=== PATIENT | female | born 1945 | race African-American/Black ===

== ENCOUNTER 2016-12-05 11:27 | Inpatient (IN) | payer MEDICARE, OTHER ==
--- NOTE | ~2016-12-05 | HP ---
History And Physical [place] [id number] [facility] [place]. [address] NAME: CINDY KEYS : 43 STATUS : ADM IN PAT#: [id number] AGE: 71 ADM/REG DATE : 12/05/16 MR#: [id number] REPORT SERV DATE: 12/05/16 DICTATED BY: Bora DASH DATE: 12/05/16 REPORT STATUS : Draft TRANSCRIBED BY: MODL DATE: 12/05/16 DATE OF ADMISSION: 12/05/2016 HISTORY OF PRESENT ILLNESS: A 71-year-old female, living independently was found down by her family this morning resulting in activation of EMS and the patient was brought to [facility] Emergency Room for further evaluation. Family states the last time they have known her to be normal was yesterday morning. They also report that the patient is actively abusing narcotics. ED evaluation shows an acute kidney injury with elevated CPK consistent with rhabdomyolysis. Her potassium was 6.0 and has been treated with insulin plus D50, calcium chloride, and sodium bicarbonate. She had a complaint of hip pain. She has had x-ray images that showed no evidence of fracture. Also her lung x-ray was clear. The patient was initially hypotensive with a blood pressure 60/40, but after fluid bolus, the patient's blood pressure is now in the 90 to 100 range over 40. ER has given Narcan 0.4 IV x2 with some transient benefit. We are currently starting a Narcan drip at 0.6 an hour as well as a bicarb drip at 150 mL an hour. Fitzpatrick catheter has been placed and Dr. Thomas Borden was in the process of placing central access in case a hemodynamic support is needed. Her bed location will be intermediate care bed 7. PAST MEDICAL HISTORY: Unobtainable secondary to her current mental status. Family is not available for interview, but they were here earlier and did go over her medications that were brought that do suggest underlying issues of osteoarthritis, hypertension, type 2 diabetes, and COPD. SOCIAL HISTORY: She does live independently. She does have good family support. The above- mentioned narcotic abuse ongoing. REVIEW OF SYSTEMS: Limited as mentioned above. FAMILY HISTORY: Unobtainable secondary to the current mental status. PHYSICAL EXAMINATION: GENERAL: It was a somnolent female who will arouse briefly and immediately go back to sleep. VITAL SIGNS: Last blood pressure was 140/48 with a heart rate of 68. She was afebrile respiratory rate was 19. HEENT: Pupils equal, round, and reactive to light. Extraocular muscles are intact. Oropharynx is clear. NECK: Without JVD or bruit. LUNGS: Clear anteriorly. Normal respiratory effort. HEART: Regular. Soft 1/6 murmur, left lower sternal border. ABDOMEN: Obese, soft. Positive bowel sounds without organomegaly or mass. EXTREMITIES: No edema. Pulses are +2. SKIN: Without rash or ecchymotic area. JOINTS: Without synovitis, effusion, or deformity. NEURO: Cranial nerves grossly intact. Motor exam is nonfocal. Sensation unremarkable. History And Physical [address] [address] NAME: CINDY KEYS : 43 STATUS : ADM IN [facility]#: [id number] AGE: 71 ADM/REG DATE : 12/05/16 MR#: [id number] REPORT SERV DATE: 12/05/16 DICTATED BY: Bora DASH DATE: 12/05/16 REPORT STATUS : Draft TRANSCRIBED BY: RAMAN DATE: 12/05/16 Gait was not assessed. GENITOURINARY: Significant for Fitzpatrick catheter. RECTAL: Deferred. LABORATORY DATA: Available data; sodium 135, potassium 6.0, chloride 109, bicarb 17, BUN 59, creatinine 3.30. CPK is 7128, troponin 0.08. Lactate is 1. White cell count is 11.4, hemoglobin is 11.7, hematocrit 35.9, platelets 299. Urine drug screen is positive for opiates. Chest x-ray was negative. Right hip x-ray negative. IMPRESSION: A 71-year-old female patient with acute kidney injury, rhabdomyolysis, hypotension, and hyperkalemia. PLAN: Admit by Dr. Dash to intermediate care. Continue Narcan drip. Continue bicarb drip. Consult to Nephrology. Renal ultrasound to evaluate structural status of her kidneys. Continue Fitzpatrick catheter. Full code status. Routine vitals. O2 to keep sats greater than 90%. N.p.o. for now. We will repeat a BMP at 1600, which is approximately 2- 1/2 hours. The a.m. labs will include CBC, CMP, and repeat CPK. Continue D5W with 3 amps of bicarb at 150 an hour. Level 2 subcu sliding scale insulin to augment diabetic control. Because of her being found down and lethargic, will complete evaluation with a noncontrast CT of the brain to rule out structural disease. Further recommendations for ongoing treatment pending review of followup laboratory, review of renal ultrasound, input from Nephrology, and observation of her response to initial therapy. FLH/MODL Bora Dash M.D. / [id number] CC: Koby Toussaint M.D.
--- NOTE | ~2016-12-05 | CN ---
Consultation Report [facility] [address] [place]. [address] NAME: CINDY RUBIO : 43 STATUS : ADM IN PAT#: [id number] AGE: 71 ADM/REG DATE : 12/05/16 MR#: [id number] REPORT SERV DATE: 12/05/16 DICTATED BY: KARMEN CAMPOVERDE DATE: 12/05/16 REPORT STATUS : Draft TRANSCRIBED BY: MODBritni DATE: 12/05/16 NEPHROLOGY CONSULTATION DATE OF CONSULTATION: 12/05/2016 REASON FOR CONSULT: Acute kidney injury, hyperkalemia, and rhabdomyolysis. HISTORY OF PRESENT ILLNESS: Ms. Rubio is a 71-year-old female who has a history of hypertension, NIDDM, hyperlipidemia, and emphysema. She had a creatinine of 1.1 in December 2015. She is chronically maintained on metformin, NSAIDs, and ARB without recent changes in her medication. She chronically takes Percocet for pain. She was brought in today by friends when she was found down at home when she was being visited by friends to bring her to her regular PCP doctor's appointment. She had last been seen around 3:30 p.m. yesterday and these events occurred this morning around 8:30 a.m. She was lethargic and brought in to [facility] ER where she was placed on a Narcan infusion. CT of the head showed no acute neuro changes, chest x-ray showed no acute process, and x-ray of the hip showed no fracture. Her lactate was 1.0, potassium 6, bicarb 17, anion gap 9, BUN 59, creatinine 3.3, CPK 7128 and myoglobin 4736. Tylenol, aspirin, and alcohol levels were normal. Fitzpatrick catheter was placed and she was put on a bicarb drip. She is now nonoliguric and apparently somewhat more awake. PAST MEDICAL HISTORY: 1. Hypertension, on ARB. 2. NIDDM, on metformin. 3. Hyperlipidemia, on statin. 4. History of right hip and bilateral knee replacements, on chronic NSAID. 5. COPD. MEDICATIONS AT HOME: Amlodipine 5 mg a day, vitamin C, vitamin D, Klonopin, Breo Ellipta, Neurontin 400 mg t.i.d., metformin 500 mg b.i.d., Remeron 45 mg at h.s., Prilosec, oxybutynin, Percocet 10 three times a day, Zocor 20 mg at h.s., Clinoril 150 mg b.i.d., Zanaflex 4 mg b.i.d., and Diovan 160 mg daily. FAMILY HISTORY: No ESRD. SOCIAL HISTORY: Unobtainable in the patient's current condition. REVIEW OF SYSTEMS: Unobtainable in the patient's current condition. PHYSICAL EXAMINATION: VITAL SIGNS: Temperature 98, pulse 91, respirations 18, blood pressure 137/63, and 95% saturation on room air. Consultation Report [address] [place]. [address] NAME: CINDY RUBIO : 43 STATUS : ADM IN [facility]#: [id number] AGE: 71 ADM/REG DATE : 12/05/16 MR#: [id number] REPORT SERV DATE: 12/05/16 DICTATED BY: KARMEN CAMPOVERDE DATE: 12/05/16 REPORT STATUS : Draft TRANSCRIBED BY: RAMAN DATE: 12/05/16 GENERAL: Sedated female, on Narcan drip. She is accompanied by two friends. She does wake up and tried to answer some questions, but is not fully appropriate at this time. HEENT: Sclerae without icterus. Conjunctivae not injected. Oropharynx is clear. Mucous membranes are dry. No JVD. LUNGS: She has bilateral rhonchi without dyspnea or tachypnea on room air. Regular rate and rhythm. No rub. ABDOMEN: Soft, nontender, and nondistended. Bowel sounds present throughout. No rebound, guarding, or peritoneal signs. EXTREMITIES: Without edema. SKIN: Without rash. She has dark clear urine in the Fitzpatrick catheter. LABORATORY DATA: Sodium 135, potassium 6, bicarb 17, BUN 59, creatinine 3.3, calcium 10.3, and magnesium 2.3. GFR 15. CPK 7128. Lactate 1.0. White count 11.4 without eosinophilia, hemoglobin 11.7, and platelets 299,000. ASSESSMENT AND PLAN: Ms. Rubio has nonoliguric acute kidney injury in the setting of rhabdomyolysis, profound hypotension on presentation, non-anion gap metabolic acidosis, hyperkalemia, encephalopathy, and anemia. More than likely her acute kidney injury is multifactorial related to a component of intravascular volume depletion, acute tubular necrosis from renal hypoperfusion from low blood pressure, rhabdomyolysis. Hold NSAIDs, metformin, and ARB. Continue IV fluids plus bicarb. She has excellent urine output in the ER, and hopefully will recover renal function without the need for dialysis. We will follow closely with you. Continue to treat potassium medically. Recheck was 5.5. Thank you for consult. NC/MODL Karmen Campoverde M.D. / [id number] CC: Bora Dash M.D.
--- NOTE | ~2016-12-05 | CN ---
Consultation Report [facility] [address] [place]. [address] NAME: CINDY RUBIO : 43 STATUS : ADM IN PAT#: [id number] AGE: 71 ADM/REG DATE : 12/05/16 MR#: [id number] REPORT SERV DATE: 12/12/16 DICTATED BY: KRISS TENA DATE: 12/12/16 REPORT STATUS : Draft TRANSCRIBED BY: MODL DATE: 12/12/16 GI CONSULTATION DATE OF CONSULTATION: 12/11/2016 REASON FOR CONSULTATION: Rectal bleeding. HISTORY OF PRESENT ILLNESS: Ms. Rubio is a 71-year-old black female who has been followed by Dr. Jones for her chronic constipation, who initially presented to [facility] with right hip pain after a fall and acute kidney injury. She has suspected rhabdomyolysis, and during her hospitalization, reported one episode of bright red blood per rectum on Thursday. It had been six days since her last bowel movement and she reports that it has streaks with wiping. She also had a bowel movement yesterday, but no overt bleeding, although it was found to be FOB positive brown stool. Her last EGD and colonoscopy were performed by Dr. Jones in 06/2014. I have brought the records of this to be placed in her chart. He found grade 1 internal hemorrhoids, but otherwise normal colonoscopy with good views. EGD was essentially without any source of bleeding. Denies any abdominal pain. No rectal pain, and no further change in her bowel movements. PAST MEDICAL HISTORY: Reflux, constipation, chronic, diabetes, arthritis, hypertension, dyslipidemia, anxiety, and breast cancer. SURGICAL HISTORY: Thyroid surgery, right hip replacement, carpal tunnel surgery, cataract surgery, and knee surgery. SOCIAL HISTORY: No smoking, alcohol, or drug use. FAMILY HISTORY: Noncontributory. MEDICATIONS: Reviewed. ALLERGIES: REVIEWED. PHYSICAL EXAMINATION: GENERAL: Patient is afebrile. VITAL SIGNS: Stable. GENERAL: The patient is awake, alert, and oriented x3. Well developed, well nourished, in no acute distress. Uses a walker to ambulate. She is ambulating in her room. HEENT: Atraumatic, normocephalic. Anicteric. Mucous membranes moist. CARDIAC: S1, S2. CHEST: Clear. ABDOMEN: Soft, nontender, and nondistended. Bowel sounds normoactive. RECTAL: The patient refuses digital rectal exam at this time. Consultation Report [place] [address] [facility] [place] [address] NAME: CINDY RUBIO : 43 STATUS : ADM IN PAT#: [id number] AGE: 71 ADM/REG DATE : 12/05/16 MR#: [id number] REPORT SERV DATE: 12/12/16 DICTATED BY: KRISS TENA DATE: 12/12/16 REPORT STATUS : Draft TRANSCRIBED BY: RAMAN DATE: 12/12/16 LABORATORY DATA: Showed WBC 8; hemoglobin 9.5, was 10.2; hematocrit 28.8, was 30; MCV 89.2; and platelets 290. Sodium 148, potassium 4.8, chloride 119, bicarb 19, BUN 17, and creatinine 0.89. Glucose 107. Liver enzymes normal. Troponin 0.08. IMPRESSION AND PLAN: Rectal bleeding, most likely from hemorrhoids or straining as the patient has not had a bowel movement in almost a week since then and this has since resolved. With regard to overt bleeding, she had recent esophagogastroduodenoscopy and colonoscopy performed in late 2013 with good views and no worrisome lesions. She has no abdominal pain or rectal pain along with this. No apparent need for endoscopic evaluation at this time. The patient also refuses digital rectal exam today. I recommend the patient be followed up with Dr. Jones in two weeks after her discharge. Can use Anusol suppositories if resumed. Please call with any questions. FRANCISCO/RAMAN Kriss Tena MD / [id number] CC: MD TANIA Taylor R. HENRY
--- NOTE | ~2016-12-05 | DS ---
Discharge Summary [place] [address] [place]. [address] NAME: CINDY KEYS : 43 STATUS : DIS IN PAT#: [id number] AGE: 71 ADM/REG DATE : 12/05/16 MR#: [id number] REPORT SERV DATE: 12/13/16 DICTATED BY: EVAN MADDOX DATE: 12/12/16 REPORT STATUS : Draft TRANSCRIBED BY: RAMAN DATE: 12/12/16 ADMISSION DATE: 12/05/2016 DISCHARGE DATE: 12/12/2016 PROCEDURES DONE: 1. 12/05/2016, CT of the head: No acute intracranial abnormality identified at this time, mild cortical volume loss, and findings compatible with minimal chronic deep white matter ischemic changes. 2. 12/05/2016, chest x-ray: New right central line with its tip in the junction of the SVC and right atrium. No pneumothorax present. 3. 12/05/2016, x-ray, right hip: Intact right hip prosthesis. No bones are osteopenic. No pelvis or left hip fractures are identified. 4. 12/05/2016, ultrasound, renal: Normal renal ultrasound. Specular fat reflection versus tiny nonobstructing right renal calculi. CONSULT: Dr. Adames for Renal. REASON FOR ADMISSION: Change in mental status. HISTORY OF HOSPITAL STAY: A 71-year-old black female with past medical history of hypertension, diabetes type 2, COPD, osteoarthritis, presenting with a change in mental status. The patient was brought by EMS from home. The patient was obtunded at the time of presentation. Initial workup in the ER showed a CPK of 7128 with an elevated potassium of 6.0. The patient was admitted in IMCU and started on a Narcan drip. There was a question of change in mental status secondary to narcotics. The patient's CPK levels eventually trended down to 441 one day prior to discharge. In addition, the patient also had a GI bleed. The patient had two stools of occult blood that was positive. GI was consulted and patient had a colonoscopy approximately 2 years ago. The patient had history of internal hemorrhoids, grade 1. H and H have been stable on the day of discharge. GI felt the patient could be safely discharged within 1 to 2 weeks' time. Follow up with Dr. Jones. DISPOSITION: The patient is feeling fine, no complaints. ACTIVITIES: As tolerated. DIET: Diabetic. MEDICATIONS UPON DISCHARGE: 1. Amlodipine 5 mg p.o. at bedtime. 2. Bentyl 10 mg p.o. t.i.d. 3. Remeron 45 mg p.o. at bedtime. 4. Prilosec 20 mg p.o. daily. 5. Diovan 160 mg p.o. daily. 6. Klonopin 0.5 mg p.o. at bedtime. 7. Neurontin 400 mg p.o. t.i.d. 8. Vitamin B12, 1000 mcg p.o. daily. Discharge Summary [address] [address] NAME: CINDY KEYS : 43 STATUS : DIS IN PAT#: [id number] AGE: 71 ADM/REG DATE : 12/05/16 MR#: [id number] REPORT SERV DATE: 12/13/16 DICTATED BY: EVAN MADDOX DATE: 12/12/16 REPORT STATUS : Draft TRANSCRIBED BY: RAMAN DATE: 12/12/16 9. Vitamin B complex one tab p.o. daily. 10.Vitamin C, 500 mg p.o. daily. 11.Vitamin D, 1000 units p.o. daily. 12.Percocet 10/325 one tab p.o. t.i.d. 13.Metformin 500 mg p.o. b.i.d. 14.Zanaflex 4 mg p.o. b.i.d. 15.Sulindac 150 mg p.o. daily. 16.Zocor 20 mg p.o. at bedtime. 17.Breo Ellipta one puff inhaled p.r.n. 18.Oxybutynin 5 mg p.o. t.i.d. 19.ProAir two puffs p.r.n. unknown frequency. 20.Flonase one spray each nostril daily p.r.n. DIAGNOSES UPON DISCHARGE: 1. Change in mental status secondary to questionable narcotics. 2. Rhabdomyolysis. 3. Hyperkalemia. 4. Hypotension secondary to change in mental status. 5. Urinary tract infection secondary to Escherichia coli, resolved. 6. Acute kidney injury secondary to rhabdomyolysis versus narcotics, resolved. FBJ/MODL Evan Maddox MD / [id number] CC: MD Fareed Taylor M.D.
--- NOTE | ~2016-12-05 | EHP ---
ER History and Physical [place] [id number] [facility] [place]. [address] NAME: CINDY KEYS : 43 STATUS : ADM IN PAT#: [id number] AGE: 71 ADM/REG DATE : 12/05/16 MR#: [id number] REPORT SERV DATE: 12/05/16 DICTATED BY: BECKY TAYLOR DATE: 12/05/16 REPORT STATUS : Draft TRANSCRIBED BY: RAMAN DATE: 12/05/16 CHIEF COMPLAINT: Low fall, weakness, and dizziness. HISTORY OF PRESENT ILLNESS: The patient is a 71-year-old, female, was seen by the midlevel provider for weakness, falls, right hip pain, been ongoing for two days. I was asked to help intervene with the patient once laboratory work started returning, and the patient became more lethargic. The patient was given Narcan. The patient is on heavy doses of narcotics at home, was unsure what all she has been taking. Narcan improved her mental status. Labs indicated the patient has acute renal failure with rhabdomyolysis and hyperkalemia. I became involved with the patient and began correcting her metabolic acidosis and help of improving her hyperkalemia, also ordered several labs in regard to rhabdomyolysis. The patient became more hypotensive here, suspecting mainly volume depletion, more IV fluids were started. Discussed this case with Dr. Dash the admitting physician, and he has requested that PICC line or central line be placed. Shortly after, the patient became more hypotensive requiring more IV fluids. The right subclavian central line was placed by myself. See the paper chart for details of the procedure. The patient tolerated this procedure well. Her hypotension seems to improve with adequate dosing of Narcan as well as volume repletion, and now, the patient is making urine. The patient is to go to the [facility]. As stated, the patient was discussed with admitting physician, and I have spent at least 45 minutes in direct care of this patient outside of any procedures with stabilization, review of lab work, and discussion with admitting physician. Please document at least 75 minutes of critical care time for both myself and the midlevel provider, Guerline Quiñones, nurse practitioner and stabilization of this patient. Total critical care time of 75 minutes. ANTHONY Becky Taylor DO / [id number] CC: Bora Dash M.D.
--- NOTE | ~2016-12-05 | HP ---
History And Physical [address] [place]. [address] NAME: CINDY KEYS : 43 STATUS : ADM IN [facility]#: [id number] AGE: 71 ADM/REG DATE : 12/05/16 MR#: [id number] REPORT SERV DATE: 12/09/16 DICTATED BY: GLEN BLEVINS DATE: 12/09/16 REPORT STATUS : Draft TRANSCRIBED BY: MODBritni DATE: 12/09/16 DATE OF ADMISSION: 12/05/2016 CHIEF COMPLAINT: Right hip pain. HISTORY OF PRESENT ILLNESS: This is a 71-year-old female, brought to the hospital with acute kidney injury, rhabdomyolysis, and confusion according to the chart, and I was consulted late Thursday for right hip pain after a fall. Review of her x-rays yesterday, which I did, the films as well as the report, revealed no evidence of acute fracture injury around the previous total hip that was done by another surgeon. ALLERGIES: NONE. MEDICATIONS: See chart. PAST MEDICAL HISTORY: Arthritis, gastritis, history of breast cancer with surgery for that in 1999. PAST SURGICAL HISTORY: Trigger thumb surgery in 1996, carpal tunnel on the right hand in 2005, right total hip replacement by Dr. Anguiano in 2009, bilateral total knees in 2013, cataract surgery in 2007 and 2010. SOCIAL HISTORY: No cigarettes, alcohol, or illicit drug use. FAMILY HISTORY: No anesthetic complications. REVIEW OF SYSTEMS: As above with acute renal injury and hypercreatinemia as noted. PHYSICAL EXAMINATION: GENERAL: She is now alert and oriented x3, in no apparent distress. HEENT: Atraumatic, normocephalic. NECK: Supple. CHEST: Symmetric, nontender. LUNGS: Per Medicine evaluation. CV: Regular. ABDOMEN: Soft. No mass. EXTREMITIES: Both upper extremities and left lower extremity without acute trauma. Right lower extremity, skin is intact. Compartment supple. She is minimally tender over the trochanter. Good range of motion of the hip. 2+ pulses. NEURO: Sensorimotor without deficit. X-RAY: I have reviewed the films and report at length in the right hip and see no evidence of acute fracture or other injury. ASSESSMENT: Right hip deep contusion, questionable radicular pain, questionable occult History And Physical [address] [place]. [address] NAME: CINDY KEYS : 43 STATUS : ADM IN PAT#: [id number] AGE: 71 ADM/REG DATE : 12/05/16 MR#: [id number] REPORT SERV DATE: 12/09/16 DICTATED BY: GLEN BLEVINS DATE: 12/09/16 REPORT STATUS : Draft TRANSCRIBED BY: MODL DATE: 12/09/16 lesion. PLAN: At this point, she is feeling somewhat better than she did right after the fall, and I have recommended we attempt immobilization and observation. If her pain persists or gets worse, we may consider further imaging. WTB/MODL Debbie Blevins M.D. / [id number] CC: Koby Schmitz M.D.
[2016-12-05 11:00] LABS: BASOPHILS 0.1 %; BASOPHILS ABSOLUTE 0.01 10/3/uL (0.0-0.16); EOSINOPHILS 0.6 %; EOSINOPHILS ABSOLUTE 0.07 10/3/uL (0.0-0.53); HEMATOCRIT 35.9 % (36.0-48.0); HEMOGLOBIN 11.7 g/dL (12.0-16.0); IMMATURE GRANULOCYTES 0.4 %; IMMATURE GRANULOCYTES ABSOLUTE 0.05 10/3/uL (0.0-0.11); LYMPHOCYTES 10.5 %; MEAN CORPUS HGB CONC 32.6 g/dL (32.0-36.0); MEAN CORPUSCULAR HEMOGLOB 30.3 pg (26.0-34.0); MONOCYTES 5.4 %; MONOCYTES ABSOLUTE 0.62 10/3/uL (0.21-1.20); NEUTROPHILS ABSOLUTE 9.45 10/3/uL (2.02-8.40); PLATELET COUNT 299 10/3/uL (150-400); RBC DISTRIBUTION WIDTH 14.6 % (12.0-16.0); RED CELL COUNT 3.86 10/6/uL (4.0-5.6)
[2016-12-05 11:01] LABS: MANUAL DIFF NO %; WHITE BLOOD CELLS 11.4 10/3/uL (4.5-10.5)
[2016-12-05 11:38] LABS: CHLORIDE, SERUM 109 MMOL/L (96-112); CPK 7128 U/L (0-200); SODIUM, SERUM 135 MMOL/L (135-148)
[2016-12-05 11:50] LABS: BUN (BLOOD UREA NITROGEN) 59 MG/DL (6-23); CALCIUM, SERUM 10.3 MG/DL (8.5-10.4); CHEST PAIN PROFILE TAT 0 Hrs 55 Mins; CO2 (CARBON DIOXIDE) 17 MMOL/L (24-34); GFR AFRICAN AMERICAN 15 ML/MIN (>=60); GFR NON AFRICAN AMERICAN 13 ML/MIN (>=60); GLUCOSE, SERUM 136 MG/DL (60-99); TROPONIN I 0.08 NG/ML (<0.05)
[2016-12-05 11:56] LABS: AMPHETAMINES (NOT ORD) NEG (NEG); BENZODIAZEPINES (NOT ORD) NEG (NEG); CANNABINOIDS (THC) NEG (NEG); COCAINE (NOT ORDERED) NEG (NEG); PHENCYCLIDINE(PCP) NEG (NEG)
[2016-12-05 11:57] LABS: BARBITURATES (NOT ORDERED NEG (NEG); OPIATES POS (NEG); TRICYCLICS NEG (NEG)
[2016-12-05] MEDS ORDERED: CYANO1000T PO (12:53)
[2016-12-05] MEDS ORDERED: SUPER B COMP PO (12:54)
[2016-12-05] MEDS ORDERED: PERCOCET 10/3251 TAB PO (12:54)
[2016-12-05] MEDS ORDERED: VITAMIN D1000 UNI1 PO (12:54)
[2016-12-05] MEDS ORDERED: VITC500 PO (12:54)
[2016-12-05] MEDS ORDERED: PRILO PO (12:55)
[2016-12-05] MEDS ORDERED: NEUR400 PO (12:55)
[2016-12-05] MEDS ORDERED: REMERON45 MG PO (12:55)
[2016-12-05] MEDS ORDERED: BENTYL10 PO (12:55)
[2016-12-05] MEDS ORDERED: NORV5 PO (12:55)
[2016-12-05] MEDS ORDERED: GLUCPH PO (12:55)
[2016-12-05] MEDS ORDERED: ZANAFLEX 4 MG TA4 MG PO (12:56)
[2016-12-05] MEDS ORDERED: ZOCOR20 PO (12:56)
[2016-12-05] MEDS ORDERED: KLONO5 PO (12:56)
[2016-12-05] MEDS ORDERED: DIOV160 PO (12:56)
[2016-12-05] MEDS ORDERED: CLIN150 PO (12:56)
[2016-12-05] MEDS ORDERED: DITRO5 PO (12:57)
[2016-12-05] MEDS ORDERED: PROAIR HFA INH (12:57)
[2016-12-05] MEDS ORDERED: FLONASE NAS (12:57)
[2016-12-05] MEDS ORDERED: BREO ELLIPTA INH (12:57)
[2016-12-05 14:32] LABS: ACETAMINOPHEN LEVEL (TYLENOL) < 2.0 MCG/ML (10.0-20.0); ALCOHOL < 10 MG/DL (0); SALICYLATE < 1.7 MG/DL (-)
[2016-12-05 16:42] LABS: CHLORIDE, SERUM 112 MMOL/L (96-112)
[2016-12-05 16:44] LABS: BUN (BLOOD UREA NITROGEN) 49 MG/DL (6-23); CALCIUM, SERUM 9.2 MG/DL (8.5-10.4); CO2 (CARBON DIOXIDE) 23 MMOL/L (24-34); CREATININE 2.11 MG/DL (0.55-1.02); GFR AFRICAN AMERICAN 26 ML/MIN (>=60); GFR NON AFRICAN AMERICAN 23 ML/MIN (>=60); GLUCOSE, SERUM 167 MG/DL (60-99); POTASSIUM, SERUM 4.5 MMOL/L (3.5-5.3); SODIUM, SERUM 150 MMOL/L (135-148)
[2016-12-05 20:21] LABS: ASCORBIC ACID (UR NOT ORDER) 20 (NEG); BILIRUBIN, URINE NEGATIVE (NEG); KETONE, URINE 20 MG/DL (NEG); LEUKOCYTE ESTERASE(NOT OR LARGE (NEG); WBC (NOT ORDERED) (RFLEX) 15 (0-5)
[2016-12-06 04:31] LABS: BASOPHILS 0.2 %; BASOPHILS ABSOLUTE 0.02 10/3/uL (0.0-0.16); EOSINOPHILS 0.4 %; EOSINOPHILS ABSOLUTE 0.03 10/3/uL (0.0-0.53); HEMOGLOBIN 10.2 g/dL (12.0-16.0); IMMATURE GRANULOCYTES 0.2 %; IMMATURE GRANULOCYTES ABSOLUTE 0.02 10/3/uL (0.0-0.11); LYMPHOCYTES 20.7 %; LYMPHOCYTES ABSOLUTE 1.77 10/3/uL (0.67-4.30); MEAN CORPUSCULAR HEMOGLOB 30.4 pg (26.0-34.0); MEAN PLATELET VOLUME 8.7 fL (9.2-13.0); MONOCYTES 5.6 %; MONOCYTES ABSOLUTE 0.48 10/3/uL (0.21-1.20); NEUTROPHILS 72.9 %; NEUTROPHILS ABSOLUTE 6.24 10/3/uL (2.02-8.40); PLATELET COUNT 239 10/3/uL (150-400); RBC DISTRIBUTION WIDTH 14.1 % (12.0-16.0); RED CELL COUNT 3.36 10/6/uL (4.0-5.6); WHITE BLOOD CELLS 8.6 10/3/uL (4.5-10.5)
[2016-12-06 04:34] LABS: MANUAL DIFF NO %; MEAN CORPUSCULAR VOLUME 89.3 fL (80-100)
[2016-12-06 05:01] LABS: A/G RATIO 0.8 (0.7-1.9); ALBUMIN 2.7 G/DL (3.5-5.0); ALKALINE PHOSPHATASE 110 U/L (45-117); BUN (BLOOD UREA NITROGEN) 26 MG/DL (6-23); CHLORIDE, SERUM 109 MMOL/L (96-112); CK-MB 9.1 NG/ML; CKMB INDEX (NOT ORD) 0.2; CO2 (CARBON DIOXIDE) 30 MMOL/L (24-34); CPK 4848 U/L (0-200); CREATININE 1.04 MG/DL (0.55-1.02); GFR AFRICAN AMERICAN 62 ML/MIN (>=60); GFR NON AFRICAN AMERICAN 54 ML/MIN (>=60); GLOBULIN 3.4 G/DL (2.5-4.1); GLUCOSE, SERUM 152 MG/DL (60-99); PHOSPHORUS, SERUM 2.5 MG/DL (2.5-4.5); POTASSIUM, SERUM 3.8 MMOL/L (3.5-5.3); SGOT(AST) 119 U/L (5-40); SGPT(ALT) 50 U/L (5-65); SODIUM, SERUM 150 MMOL/L (135-148); TOTAL BILIRUBIN 0.8 MG/DL (0-1.2); TOTAL PROTEIN 6.1 G/DL (6.0-8.5)
[2016-12-07 04:43] LABS: BASOPHILS 0.3 %; BASOPHILS ABSOLUTE 0.03 10/3/uL (0.0-0.16); EOSINOPHILS 1.2 %; EOSINOPHILS ABSOLUTE 0.11 10/3/uL (0.0-0.53); IMMATURE GRANULOCYTES 0.8 %; IMMATURE GRANULOCYTES ABSOLUTE 0.07 10/3/uL (0.0-0.11); LYMPHOCYTES 20.6 %; LYMPHOCYTES ABSOLUTE 1.82 10/3/uL (0.67-4.30); MEAN CORPUS HGB CONC 33.1 g/dL (32.0-36.0); MEAN CORPUSCULAR HEMOGLOB 29.9 pg (26.0-34.0); MEAN CORPUSCULAR VOLUME 90.2 fL (80-100); MEAN PLATELET VOLUME 8.8 fL (9.2-13.0); MONOCYTES 7.4 %; MONOCYTES ABSOLUTE 0.65 10/3/uL (0.21-1.20); NEUTROPHILS 69.7 %; NEUTROPHILS ABSOLUTE 6.15 10/3/uL (2.02-8.40); PLATELET COUNT 254 10/3/uL (150-400); RBC DISTRIBUTION WIDTH 14.3 % (12.0-16.0); RED CELL COUNT 3.68 10/6/uL (4.0-5.6); WHITE BLOOD CELLS 8.8 10/3/uL (4.5-10.5)
[2016-12-07 04:47] LABS: HEMATOCRIT 33.2 % (36.0-48.0); MANUAL DIFF NO %
[2016-12-07 05:09] LABS: ALBUMIN 2.9 G/DL (3.5-5.0); CALCIUM, SERUM 8.9 MG/DL (8.5-10.4); CHLORIDE, SERUM 112 MMOL/L (96-112); CREATININE 0.68 MG/DL (0.55-1.02); GFR AFRICAN AMERICAN 101 ML/MIN (>=60); GFR NON AFRICAN AMERICAN 87 ML/MIN (>=60); GLUCOSE, SERUM 136 MG/DL (60-99); POTASSIUM, SERUM 4.2 MMOL/L (3.5-5.3); SODIUM, SERUM 145 MMOL/L (135-148)
[2016-12-07 05:10] LABS: BUN (BLOOD UREA NITROGEN) 9 MG/DL (6-23); CO2 (CARBON DIOXIDE) 22 MMOL/L (24-34); CPK 3595 U/L (0-200); PHOSPHORUS, SERUM 1.6 MG/DL (2.5-4.5)
[2016-12-08 03:45] LABS: BASOPHILS 0.6 %; BASOPHILS ABSOLUTE 0.05 10/3/uL (0.0-0.16); EOSINOPHILS 2.8 %; EOSINOPHILS ABSOLUTE 0.24 10/3/uL (0.0-0.53); HEMATOCRIT 31.8 % (36.0-48.0); HEMOGLOBIN 10.4 g/dL (12.0-16.0); IMMATURE GRANULOCYTES 0.6 %; IMMATURE GRANULOCYTES ABSOLUTE 0.05 10/3/uL (0.0-0.11); LYMPHOCYTES 33.4 %; LYMPHOCYTES ABSOLUTE 2.84 10/3/uL (0.67-4.30); MEAN CORPUS HGB CONC 32.7 g/dL (32.0-36.0); MEAN CORPUSCULAR VOLUME 91.6 fL (80-100); MONOCYTES 6.9 %; MONOCYTES ABSOLUTE 0.59 10/3/uL (0.21-1.20); NEUTROPHILS 55.7 %; NEUTROPHILS ABSOLUTE 4.73 10/3/uL (2.02-8.40); PLATELET COUNT 243 10/3/uL (150-400); RBC DISTRIBUTION WIDTH 14.3 % (12.0-16.0); RED CELL COUNT 3.47 10/6/uL (4.0-5.6); WHITE BLOOD CELLS 8.5 10/3/uL (4.5-10.5)
[2016-12-08 03:46] LABS: MANUAL DIFF NO %
[2016-12-08 04:13] LABS: BUN (BLOOD UREA NITROGEN) 8 MG/DL (6-23); CALCIUM, SERUM 8.3 MG/DL (8.5-10.4); CHLORIDE, SERUM 116 MMOL/L (96-112); CO2 (CARBON DIOXIDE) 24 MMOL/L (24-34); CREATININE 0.68 MG/DL (0.55-1.02); GFR AFRICAN AMERICAN 101 ML/MIN (>=60); GFR NON AFRICAN AMERICAN 87 ML/MIN (>=60); POTASSIUM, SERUM 4.4 MMOL/L (3.5-5.3); SODIUM, SERUM 149 MMOL/L (135-148)
[2016-12-08 04:14] LABS: CPK 1887 U/L (0-200); GLUCOSE, SERUM 98 MG/DL (60-99)
[2016-12-09 07:47] LABS: BUN (BLOOD UREA NITROGEN) 11 MG/DL (6-23); CALCIUM, SERUM 8.6 MG/DL (8.5-10.4); CHLORIDE, SERUM 114 MMOL/L (96-112); CO2 (CARBON DIOXIDE) 20 MMOL/L (24-34); CREATININE 0.73 MG/DL (0.55-1.02); GFR AFRICAN AMERICAN 95 ML/MIN (>=60); GFR NON AFRICAN AMERICAN 82 ML/MIN (>=60); GLUCOSE, SERUM 116 MG/DL (60-99); POTASSIUM, SERUM 4.4 MMOL/L (3.5-5.3); SODIUM, SERUM 145 MMOL/L (135-148)
[2016-12-09 07:48] LABS: CPK 860 U/L (0-200)
[2016-12-10 06:48] LABS: ALBUMIN 2.7 G/DL (3.5-5.0); BUN (BLOOD UREA NITROGEN) 14 MG/DL (6-23); CHLORIDE, SERUM 117 MMOL/L (96-112); CO2 (CARBON DIOXIDE) 19 MMOL/L (24-34); CREATININE 0.86 MG/DL (0.55-1.02); GFR AFRICAN AMERICAN 78 ML/MIN (>=60); GFR NON AFRICAN AMERICAN 67 ML/MIN (>=60); GLUCOSE, SERUM 139 MG/DL (60-99); POTASSIUM, SERUM 4.1 MMOL/L (3.5-5.3); SODIUM, SERUM 147 MMOL/L (135-148)
[2016-12-10 06:49] LABS: CPK 441 U/L (0-200); PHOSPHORUS, SERUM 3.6 MG/DL (2.5-4.5)
[2016-12-11 06:58] LABS: BASOPHILS 0.5 %; BASOPHILS ABSOLUTE 0.04 10/3/uL (0.0-0.16); HEMATOCRIT 28.8 % (36.0-48.0); HEMOGLOBIN 9.5 g/dL (12.0-16.0); IMMATURE GRANULOCYTES ABSOLUTE 0.08 10/3/uL (0.0-0.11); LYMPHOCYTES 39.1 %; LYMPHOCYTES ABSOLUTE 3.14 10/3/uL (0.67-4.30); MEAN CORPUSCULAR HEMOGLOB 29.4 pg (26.0-34.0); MEAN CORPUSCULAR VOLUME 89.2 fL (80-100); MEAN PLATELET VOLUME 8.9 fL (9.2-13.0); MONOCYTES ABSOLUTE 0.72 10/3/uL (0.21-1.20); NEUTROPHILS 45.4 %; NEUTROPHILS ABSOLUTE 3.65 10/3/uL (2.02-8.40); PLATELET COUNT 290 10/3/uL (150-400); RBC DISTRIBUTION WIDTH 14.5 % (12.0-16.0); RED CELL COUNT 3.23 10/6/uL (4.0-5.6)
[2016-12-11 06:59] LABS: MANUAL DIFF NO %
[2016-12-11 07:00] LABS: ALBUMIN 2.9 G/DL (3.5-5.0); BUN (BLOOD UREA NITROGEN) 17 MG/DL (6-23); CALCIUM, SERUM 9.1 MG/DL (8.5-10.4); CHLORIDE, SERUM 119 MMOL/L (96-112); CO2 (CARBON DIOXIDE) 19 MMOL/L (24-34); CREATININE 0.89 MG/DL (0.55-1.02); GFR AFRICAN AMERICAN 75 ML/MIN (>=60); GFR NON AFRICAN AMERICAN 65 ML/MIN (>=60); PHOSPHORUS, SERUM 3.4 MG/DL (2.5-4.5); POTASSIUM, SERUM 4.8 MMOL/L (3.5-5.3); SODIUM, SERUM 148 MMOL/L (135-148)
[2016-12-11 07:03] LABS: GLUCOSE, SERUM 101 MG/DL (60-99)
[2016-12-12 14:43] LABS: HEMOGLOBIN 11.3 g/dL (12.0-16.0); MANUAL DIFF YES %; MEAN CORPUS HGB CONC 33.2 g/dL (32.0-36.0); MEAN CORPUSCULAR HEMOGLOB 30.3 pg (26.0-34.0); MEAN CORPUSCULAR VOLUME 91.2 fL (80-100); MEAN PLATELET VOLUME 8.7 fL (9.2-13.0); PLATELET COUNT 361 10/3/uL (150-400); RBC DISTRIBUTION WIDTH 14.8 % (12.0-16.0); RED CELL COUNT 3.73 10/6/uL (4.0-5.6); WHITE BLOOD CELLS 9.5 10/3/uL (4.5-10.5)
[2016-12-12 14:51] LABS: ALBUMIN 3.6 G/DL (3.5-5.0); BUN (BLOOD UREA NITROGEN) 20 MG/DL (6-23); CALCIUM, SERUM 10.1 MG/DL (8.5-10.4); CHLORIDE, SERUM 112 MMOL/L (96-112); CO2 (CARBON DIOXIDE) 26 MMOL/L (24-34); CREATININE 1.28 MG/DL (0.55-1.02); GFR AFRICAN AMERICAN 48 ML/MIN (>=60); GFR NON AFRICAN AMERICAN 42 ML/MIN (>=60); GLUCOSE, SERUM 63 MG/DL (60-99); PHOSPHORUS, SERUM 3.1 MG/DL (2.5-4.5); POTASSIUM, SERUM 4.4 MMOL/L (3.5-5.3); SODIUM, SERUM 143 MMOL/L (135-148)
[2016-12-12 15:06] LABS: BAND NEUTROPHILS 4 %; EOSINOPHILS 6 %; EOSINOPHILS ABSOLUTE (CALC) 0.57 10/3/uL (0.0-0.53); LYMPHOCYTES 32 %; LYMPHOCYTES ABSOLUTE (CALC) 3.04 10/3/uL (0.67-4.30); MONOCYTES 6 %; MONOCYTES ABSOLUTE (CALC) 0.57 10/3/uL (0.21-1.20); NEUTROPHILS ABSOLUTE (CALC) 5.32 10/3/uL (2.02-8.40); PLATELET ESTIMATE ADQ (ADEQUATE); POLYCHROMASIA 1+ (2-5/OIF) (0-1/OIF); SEGMENTED NEUTROPHIL (0) 52 %; TOTAL NUCLEATED CELLS 100
[2017-01-09] MEDS ORDERED: ZANAFLEX 4 MG TA4 MG PO (15:35)
[2017-01-09] MEDS ORDERED: NEUR400 PO (15:35)
[2017-01-09] MEDS ORDERED: VITAMIN B PO (15:37)
[2017-01-09] MEDS ORDERED: VITAMIN D3 PO (15:38)
[2017-01-09] MEDS ORDERED: VITAMIN C PO (15:39)
[2017-01-09] MEDS ORDERED: ZOCOR20 PO (15:40)
[2017-01-09] MEDS ORDERED: KLONO5 PO (15:41)
[2017-01-09] MEDS ORDERED: REMERON45 MG PO (15:41)
[2017-01-09] MEDS ORDERED: DIOVAN320 MG PO (15:42)
[2017-01-09] MEDS ORDERED: ASA5GR PO (15:42)
[2017-01-09] MEDS ORDERED: PROAIR HFA INH (15:44)
[2017-01-09] MEDS ORDERED: VITAMIN B-121000 MC1 SL (15:44)
[2017-01-09] MEDS ORDERED: BREO ELLIPTA INH (15:44)
[2017-01-09] MEDS ORDERED: BENTYL10 PO (15:45)
[2017-01-09] MEDS ORDERED: PRILO PO (15:46)
[2017-01-09] MEDS ORDERED: DITRO5 PO (15:47)
[2017-01-09] MEDS ORDERED: CLIN150 PO (15:47)
[2017-01-09] MEDS ORDERED: BEN25 PO (15:49)
[2017-01-09] MEDS ORDERED: RESTASIS OPH (15:51)
[2017-01-09] MEDS ORDERED: CALCIUM PO (15:52)
[2017-01-09] MEDS ORDERED: [UNRECOGNIZED DRUG - REMARK] PO (15:53)
[2017-01-09] MEDS ORDERED: GLUCPH PO (16:01)
[2017-01-10] MEDS ORDERED: LOP25 PO (15:03)
== END 2016-12-12 16:09 | DRG 682 ==
LOC: ER 11:27 → IMCU 13:01 → 7NO 12-07 15:46
PROVIDERS: Hospitalist; Internal Medicine; Nurse Practitioner Family
DX: N17.0 Acute kidney failure with tubular necrosis (principal); G92 Toxic encephalopathy; E87.2 Acidosis; N39.0 Urinary tract infection, site not specified; M62.82 Rhabdomyolysis; E87.5 Hyperkalemia; E11.9 Type 2 diabetes mellitus without complications; B96.20 Unspecified Escherichia coli [E. coli] as the cause of diseases classified elsewhere; E78.5 Hyperlipidemia, unspecified; Z79.84 Long term (current) use of oral hypoglycemic drugs; Z96.653 Presence of artificial knee joint, bilateral; Z96.641 Presence of right artificial hip joint; J44.9 Chronic obstructive pulmonary disease, unspecified; T40.2X5A Adverse effect of other opioids, initial encounter
CPT/HCPCS: 36600; 70450; 71010; 73502-RT; 76775; 80048; 80053; 80069; 80305; 80307; 81001; 82272; 82330; 82550; 82553; 82803; 82947; 82962; 83605; 83735; 83874; 84132; 84295; 84484; 85014; 85025; 85610; 85730; 87040; 87077; 87086; 87186; 87641; 93005; 96374; 97116-GP; 97162-GP; 97530-GP; 99291; 99292; A9270-GY; G8978-CK-GP; G8979-CK-GP; J0360; J0610; J2310; J2405; J2765